=== PATIENT | female | born 1955 | race Two or more races ===

== ENCOUNTER 2025-03-20 10:57 | Outpatient (CLI) | payer MEDICARE ==
[~2025-03-20] VITALS: Ht 157.5 cm; Wt 87.1 kg
[2025-03-20] MEDS: REGADENOSON 0.4 MG/5 ML SYRG IV ONE ×2 (13:12→13:20)
--- NOTE | 2025-03-21 17:22 | DVHSR ---
APPROVED REPORT Exam: Nuclear Stress Test Indication: Chest pain Stress Tech: Theodora Tellez Ht: 5 ft 2 in Wt: 192 lbs BSA: 1.88 m2 HR: 84 bpm BP: 125/68 mmHg BMI: 35.11 Rhythm: NSR Medical History Medical History: HTN, PREDIABETIC Allergies: SULFA, CODEINE Stress Test Details Stress Test: Pharmacologic stress testing performed using 0.4 mg of regadenoson per 5 mL given IV ov er 10 seconds. Reason for pharmacologic stress test: CHEST PAIN. HR Resting HR: 84 bpmMax Heart Rate (APMHR): 150.146470 bpm Max HR Achieved: 113 bpmTarget HR (85% APMHR): 127.015482 bpm % of APMHR: 75.33 Recovery HR: 99 bpm BP Resting BP: 125/68 mmHg Recovery BP: 130/55 mmHg ECG Resting ECG: NSR Clinical Reason for Termination: Completed protocol Nurse Comments UNEVENTFUL STRESS TEST PERFORMED PER PROTOCOL, PATIENT TOLERATED WELL AND AMBULATED BACK TO [facility] WITH TECH IN STABLE CONDITION Stress ECG Conclusion no severe ischemia noted normal perfusion scan lvef 82% NM EXAM: Myocardial Perfusion REST/STRESS Imaging Protocol: Rest Tc-99m/Stress Tc-99m 1 day Resting Data Rest SPECT myocardial perfusion imaging was performed in supine position 60 minutes following the int ravenous injection of 10.2 mCi of Tc-99m Sestamibi. Time of rest injection: 1200 Time of rest imagin Administration Route: IV Administration Site: Left AC Pharmacologic Stress Pharmacologic stress test was performed by injecting Regadenoson 0.4 mg IV push followed by the intra venous injection of 32.5 mCi of Tc-99m Sestamibi. Time of stress injection: 1330 Time of stress imagin Administration Route: IV Administration Site: Left AC Gated Stress SPECT was performed 90 minutes after stress injection. The images were gated to evaluate regional wall motion and calculate left ventricular ejection fracti on. Nuclear Conclusion Nuclear Findings: negative for ischemia no severe ischemia noted normal perfusion scan lvef 82%
== END 2025-03-20 17:00 | disposition home or self-care (01) ==
LOC: XYW 10:57
PROVIDERS: ATTEND Internal Medicine
DX: R07.9 Chest pain, unspecified (principal); I10 Essential (primary) hypertension; R06.02 Shortness of breath; R05.9 Cough, unspecified; Z68.38 Body mass index [BMI] 38.0-38.9, adult; Z88.2 Allergy status to sulfonamides; Z88.5 Allergy status to narcotic agent
CPT/HCPCS: 78452; 93017; A9500; J2785